=== PATIENT | male | born 1990 | race Caucasian/White ===

== ENCOUNTER 2022-04-27 00:07 | Emergency (ER) | payer BC ==
[2022-04-27] MEDS ORDERED: ACETAMINOPHEN 325 MG TABLET ONE (01:45)
[2022-04-27] MEDS ORDERED: NA CHLORIDE 0.9% 1,000 ML ONE (01:46)
[2022-04-27 02:04] LABS: Absolute Lymphocytes (CBC) 0.5 K/uL (0.7-4.9); Hematocrit 41.5 % (39.6-49.0); Lymphocytes % 5.5 % (15.3-44.8); MPV 7.5 fL (7.6-11.3); RBC Red Blood Cell Count 4.56 M/uL (4.33-5.43)
[2022-04-27 02:10] LABS: Urine Blood Negative (Negative); Urine Glucose Negative (Negative); Urine Protein Negative (Negative); Urine Specific Gravity 1.025 (1.005-1.030); Urine pH 5.5 (5.0-7.0)
[2022-04-27 02:25] LABS: Albumin 4.1 g/dL (3.4-5.0); Bilirubin Total 0.5 mg/dL (0.2-1.0); Potassium 3.9 mmol/L (3.5-5.1); Protein, Total 7.3 g/dL (6.4-8.2)
--- NOTE | 2022-04-27 04:18 | ER ---
Nurse's Notes [facility] Name: Bebeto Coughlin Age: 31 yrs Sex: Male : 1990 Arrival Date: 04/27/2022 Time: 00:12 Bed 5 Private MD: Diagnosis: Rectal bleeding Presentation: 04/27 00:21 Chief complaint: Patient states: I have had chills for 3 hours. I noticed blood in my jb4 stool. I have a hemorrhoids. The blood looked like other episodes of bleeding from my hemorrhoids in the past. Coronavirus screen: At this time, the client does not indicate any symptoms associated with coronavirus-19. Ebola Screen: No symptoms or risks identified at this time. Initial Sepsis Screen: Does the patient meet any 2 criteria? Temp <36.0*C (96.8*F)) or > 38.3*C (100.9*F). HR > 90 bpm. Yes Does the patient have a suspected source of infection? No. Patient's initial sepsis screen is negative. Risk Assessment: Do you want to hurt yourself or someone else? Patient reports no desire to harm self or others. Onset of symptoms was April 27, 2022. Transition of care: patient was not received from another setting of care. 00:21 Method Of Arrival: Ambulatory jb4 00:21 Acuity: SHIMON 3 jb4 Historical: - Allergies: 00:24 Aspirin; jb4 - Home Meds: 00:24 None [Active]; jb4 - PMHx: 00:24 hemorrhoids; jb4 - PSHx: 00:24 None; jb4 - Immunization history:: Adult Immunizations up to date. - Social history:: Smoking status: Patient denies any tobacco usage or history of. Screenin:42 Abuse screen: Denies threats or abuse. Denies injuries from another. Nutritional as6 screening: No deficits noted. Tuberculosis screening: No symptoms or risk factors identified. Fall Risk None identified. Assessment: 00:41 General: Appears in no apparent distress. Behavior is calm, cooperative. General: as6 Reports chills for 0-12 hours, fever for 0-12 hours, feeling ill for 0-12 hours, fatigue for 0-12 hours. Pain: Denies pain. Neuro: Garrett Agitation-Sedation Scale (RASS): 0 - Alert and Calm Level of Consciousness is awake, alert, obeys commands, Oriented to person, place, time, situation. Cardiovascular: JVD is absent Patient's skin is warm and dry. Respiratory: Respiratory effort is even, unlabored, Respiratory pattern is regular, symmetrical. GI: Reports hemorrhoids. Derm: Skin is intact, is healthy with good turgor. 03:43 Reassessment: Patient appears in no apparent distress at this time. Patient and/or as6 family updated on plan of care and expected duration. Pain level reassessed. Vital Signs: 00:21 BP 115 / 75; Pulse 104; Resp 20; Temp 102.7(O); Pulse Ox 97% on R/A; Weight 115.67 kg jb4 (R); Height 6 ft. 0 in. (182.88 cm); Pain 2/10; 01:30 BP 113 / 61; Pulse 95; Resp 18 S; Pulse Ox 95% on R/A; as6 02:30 BP 107 / 60; Pulse 89; Resp 20 S; Pulse Ox 96% on R/A; as6 03:41 BP 105 / 58; Pulse 89; Resp 18 S; Temp 98.8(O); Pulse Ox 95% on R/A; as6 00:21 Body Mass Index 34.58 (115.67 kg, 182.88 cm) jb4 ED Course: 00:12 Patient arrived in ED. bp1 00:24 Triage completed. jb4 00:24 Arm band placed on right wrist. jb4 00:36 Hugo Rodney, RN is Primary Nurse. as6 00:42 Bed in low position. Call light in reach. Side rails up X2. Adult w/ patient. Pulse ox as6 on. NIBP on. 01:01 Miky Dickinson MD is Attending Physician. mh7 01:51 Inserted saline lock: 20 gauge in right antecubital area, using aseptic technique. as6 Blood collected. 03:08 CT Abd/Pelvis - IV Contrast Only In Process Unspecified. EDMS 04:15 Carlos Linder MD is Referral Physician. mh7 04:24 No provider procedures requiring assistance completed. IV discontinued, intact, as6 bleeding controlled, No redness/swelling at site. Pressure dressing applied. Administered Medications: 01:53 Drug: NS 0.9% 1000 ml Route: IV; Rate: 1 bolus; Site: right antecubital; as6 03:43 Follow up: Response: No adverse reaction; IV Status: Completed infusion; IV Intake: as6 1000ml 01:53 Drug: Tylenol 650 mg Route: PO; as6 03:43 Follow up: Response: No adverse reaction; Temperature is decreased as6 Medication: 01:58 VIS not applicable for this client. as6 Intake: 03:43 IV: 1000ml; Total: 1000ml. as6 Outcome: 04:17 Discharge ordered by . keyshawn 04:25 Discharged to home ambulatory, with significant other. as6 04:25 Condition: stable 04:25 Discharge instructions given to patient, significant other, Instructed on discharge instructions, follow up and referral plans. Demonstrated understanding of instructions, follow-up care. 04:25 Patient left the ED. as6 Signatures: Dispatcher [employer] EDMS Yury Govea RN RN jb4 Cheyanne Price Maurice, MD MD mh7 Hugo Rodney RN RN as6 Corrections: (The following items were deleted from the chart) 00:26 00:21 Chief complaint: Patient states: I have had chills for 3 hours. I noticed blood jb4 in my stool. I have a hemroid jb4
--- NOTE | 2022-04-27 04:18 | EDPHYS ---
Physician Documentation [facility] Name: Bebeto Coughlin Age: 31 yrs Sex: Male : 1990 Arrival Date: 04/27/2022 Time: 00:12 Bed 5 Private MD: ED Physician Miky Dickinson HPI: 04/27 01:15 This 31 yrs old Male presents to ER via Ambulatory with complaints of Bloody Stools. mh7 01:15 The patient presents to the emergency department with rectal bleeding, a small amount, mh7 on toilet paper, in toilet bowl. Onset: The symptoms/episode began/occurred just prior to arrival. Abdominal pain: described as crampy, waxing and waning, located in the umbilical area, that does not radiate. Modifying factors: The symptoms are alleviated by nothing, the symptoms are aggravated by nothing. Associated signs and symptoms: Pertinent positives: chills, bodyaches, Pertinent negatives: anorexia, chest pain, constipation, diarrhea, dizziness at rest, dizziness when standing, shortness of breath, syncope, near-syncope, vomiting. Severity of symptoms: At their worst the symptoms were moderate just prior to arrival, in the emergency department the symptoms have improved markedly. Historical: - Allergies: 00:24 Aspirin; jb4 - Home Meds: 00:24 None [Active]; jb4 - PMHx: 00:24 hemorrhoids; jb4 - PSHx: 00:24 None; jb4 - Immunization history:: Adult Immunizations up to date. - Social history:: Smoking status: Patient denies any tobacco usage or history of. ROS: 01:15 Eyes: Negative for injury, pain, redness, and discharge, ENT: Negative for injury, mh7 pain, and discharge, Neck: Negative for injury, pain, and swelling, Cardiovascular: Negative for chest pain, palpitations, and edema, Respiratory: Negative for shortness of breath, cough, wheezing, and pleuritic chest pain, Back: Negative for injury and pain, : Negative for injury, bleeding, discharge, and swelling, MS/Extremity: Negative for injury and deformity, Skin: Negative for injury, rash, and discoloration, Neuro: Negative for headache, weakness, numbness, tingling, and seizure, Psych: Negative for depression, anxiety, suicide ideation, homicidal ideation, and hallucinations, Allergy/Immunology: Negative for hives, rash, and allergies, Endocrine: Negative for neck swelling, polydipsia, polyuria, polyphagia, and marked weight changes, Hematologic/Lymphatic: Negative for swollen nodes, abnormal bleeding, and unusual bruising. Exam: 01:15 Constitutional: This is a well developed, well nourished patient who is awake, alert, mh7 and in no acute distress. Head/Face: Normocephalic, atraumatic. Eyes: Pupils equal round and reactive to light, extra-ocular motions intact. Lids and lashes normal. Conjunctiva and sclera are non-icteric and not injected. Cornea within normal limits. Periorbital areas with no swelling, redness, or edema. Neck: Trachea midline, no thyromegaly or masses palpated, and no cervical lymphadenopathy. Supple, full range of motion without nuchal rigidity, or vertebral point tenderness. No Meningismus. Chest/axilla: Normal chest wall appearance and motion. Nontender with no deformity. No lesions are appreciated. Cardiovascular: Regular rate and rhythm with a normal S1 and S2. No gallops, murmurs, or rubs. Normal PMI, no JVD. No pulse deficits. Respiratory: Lungs have equal breath sounds bilaterally, clear to auscultation and percussion. No rales, rhonchi or wheezes noted. No increased work of breathing, no retractions or nasal flaring. 01:15 Back: No spinal tenderness. No costovertebral tenderness. Full range of motion. Skin: Warm, dry with normal turgor. Normal color with no rashes, no lesions, and no evidence of cellulitis. MS/ Extremity: Pulses equal, no cyanosis. Neurovascular intact. Full, normal range of motion. Neuro: Awake and alert, GCS 15, oriented to person, place, time, and situation. Cranial nerves II-XII grossly intact. Motor strength 5/5 in all extremities. Sensory grossly intact. Cerebellar exam normal. Normal gait. Psych: Awake, alert, with orientation to person, place and time. Behavior, mood, and affect are within normal limits. 01:15 Abdomen/GI: Inspection: obese Bowel sounds: normal, in all quadrants, Palpation: mild abdominal tenderness, in the umbilical area, mass, is not appreciated, rebound tenderness, is not appreciated, voluntary guarding, is not appreciated, involuntary guarding, is not appreciated, no appreciated organomegaly, Rectal exam: rectal tone normal, Stool: brown, guaiac negative, hemorrhoid(s), are not appreciated, mass, is not appreciated, swelling, is not appreciated, tenderness, is not appreciated, fecal impaction, is not appreciated, the exam is chaperoned by the nurse, Indicators: McBurney's point is not tender, Ricthie's sign is negative, Rovsing's sign is negative, Obturator sign is negative, Psoas sign is negative, Liver: no appreciated palpable abnormalities, Hernia: not appreciated. Vital Signs: 00:21 BP 115 / 75; Pulse 104; Resp 20; Temp 102.7(O); Pulse Ox 97% on R/A; Weight 115.67 kg jb4 (R); Height 6 ft. 0 in. (182.88 cm); Pain 2/10; 01:30 BP 113 / 61; Pulse 95; Resp 18 S; Pulse Ox 95% on R/A; as6 02:30 BP 107 / 60; Pulse 89; Resp 20 S; Pulse Ox 96% on R/A; as6 03:41 BP 105 / 58; Pulse 89; Resp 18 S; Temp 98.8(O); Pulse Ox 95% on R/A; as6 00:21 Body Mass Index 34.58 (115.67 kg, 182.88 cm) jb4 MDM: 04:11 Differential diagnosis: gastritis, diverticulitis, hemorrhoids. Data reviewed: vital mh7 signs, nurses notes, lab test result(s), CBC, electrolytes, Flu: negative urinalysis, radiologic studies, CT scan. Data interpreted: Pulse oximetry: on room air is 95 %. Interpretation: normal. Counseling: I had a detailed discussion with the patient and/or guardian regarding: the historical points, exam findings, and any diagnostic results supporting the discharge/admit diagnosis, lab results, radiology results, the need for outpatient follow up, to return to the emergency department if symptoms worsen or persist or if there are any questions or concerns that arise at home. Response to treatment: the patient's symptoms have resolved after treatment, the patient's blood pressure is in an acceptable range, mental status has returned to baseline, the patient no longer shows bradycardia, the patient is not short of breath, the patient is not tachycardic, the patient's pain is gone, the patient's temperature has normalized, the patient is now symptom free, patient is well hydrated. 04:17 Patient medically screened. [facility] 04/27 01:33 Order name: CBC with Diff; Complete Time: 02:33 [facility] 04/27 01:33 Order name: CMP; Complete Time: 02:33 [facility] 04/27 01:33 Order name: Lipase; Complete Time: 02:33 [facility] 04/27 01:35 Order name: COVID-19 SARS RT PCR (Document "Date of Onset" if Symptomatic); Complete [facility] Time: 03:32 04/27 01:35 Order name: Influenza Screen (a \\T\\ B); Complete Time: 02:33 [facility] 04/27 01:35 Order name: Rapid Strep; Complete Time: 02:33 [facility] 04/27 01:33 Order name: CT Abd/Pelvis - IV Contrast Only [facility] 04/27 01:34 Order name: IV Saline Lock; Complete Time: 01:57 [facility] 04/27 01:34 Order name: Labs collected and sent; Complete Time: 01:57 [facility] 04/27 01:34 Order name: Urine Dipstick-Ancillary (obtain specimen); Complete Time: 02:10 [facility] 04/27 02:11 Order name: Urine Dipstick-Ancillary; Complete Time: 02:33 EDMS 04/27 02:31 Order name: Throat Culture EDMS Administered Medications: 01:53 Drug: NS 0.9% 1000 ml Route: IV; Rate: 1 bolus; Site: right antecubital; as6 03:43 Follow up: Response: No adverse reaction; IV Status: Completed infusion; IV Intake: as6 1000ml 01:53 Drug: Tylenol 650 mg Route: PO; as6 03:43 Follow up: Response: No adverse reaction; Temperature is decreased as6 Disposition Summary: 04/27/22 04:17 Discharge Ordered Location: Home [facility] Problem: an acute exacerbation [facility] Symptoms: have improved [facility] Condition: Stable [facility] Diagnosis - Rectal bleeding [facility] Followup: [facility] - With: Private Physician - When: 1 - 2 days - Reason: Worsening of condition, Recheck today's complaints, Continuance of care, Re-evaluation by your physician Followup: [facility] - With: Carlos Linder MD - When: 1 - 2 days - Reason: Worsening of condition, Recheck today's complaints Discharge Instructions: - Discharge Summary Sheet 7 - Rectal Bleeding, [id number] [facility] Forms: - Medication Reconciliation Form [facility] - Thank You Letter 7 - Antibiotic Education [facility] - Prescription Opioid Use [facility] Signatures: Dispatcher [employer] Yury Arevalo RN RN jb4 Miky Dickinson MD MD mh7 Hugo Rodney RN RN as6
[2022-04-27 04:38] VITALS: BP 105/58; TEMP 98.8; O2SAT 95
--- NOTE | 2022-04-27 14:14 | RAD REPORT ---
EXAM DESCRIPTION: Abdomen Pelvis W Contrast 04/27/2022 3:46 AM CDT CLINICAL HISTORY: 31 years, Male, Abdominal pain, acute, nonlocalized COMPARISON: None. TECHNIQUE: Contrast-enhanced images of the abdomen and pelvis were performed utilizing 5 mm slice th ickness at 5 mm interval reconstruction from the lung bases to the ischial tuberosities after the adm inistration of IV contrast. In addition multiplanar reformats in the coronal and sagittal plane were obtained and reviewed. This exam was performed according to our departmental dose-optimization protocol, which includes auto mated exposure control, adjustment of the mA and/or kV according to patient size and/or use of iterat philly reconstruction technique. FINDINGS: The lung bases demonstrate to be clear. The liver demonstrate decreased attenuation corresponding to mild fatty infiltration. Otherwise the, gallbladder, pancreas, spleen and adrenal glands demonstrate to be unremarkable, no focal lesions are noted. There is a incomplete the rotated and incomplete migrated right kidney within right pelvis. No eviden ce for nephrolithiasis and/or hydronephrosis. Grossly the unopacified stomach, small bowel and large bowel demonstrate to be within normal limits. There is no evidence for bowel dilatation/or free air. The appendix is normal. The urinary bladder demonstrate to be unremarkable. The prostate gland is normal. The aorta demon strate to be normal. There is no retroperitoneal lymphadenopathy. There is no evidence for ascites/ or significant abnormal fluid collections. The rest of the soft tissue and bony structures are within normal limits. IMPRESSION: No acute intra-abdominal process. Mild fatty infiltration of the liver. Incomplete the rotated and incomplete migrated right kidney within right pelvis. Electronically signed by: Chivo Marin MD 04/27/2022 3:50 AM CDT Due to temporary technical issues with the PACS/Fluency reporting system, reports are being signed by the in house radiologist without review as a courtesy to ensure prompt reporting. The interpreting r adiologist is fully responsible for the content of the report.
== END 2022-04-27 04:25 | disposition home or self-care (01) ==
LOC: ER 00:07
DX: K62.5 Hemorrhage of anus and rectum (principal); Z88.6 Allergy status to analgesic agent
CPT/HCPCS: 96361; 87070; 85025; 36415; 87081; 81003; 83690; 80053; 87804 ×2; 74177; 96360; 99284; U0003; Q9967; J7030